=== PATIENT | female | born 1995 | race Caucasian/White ===

== ENCOUNTER 2025-04-18 16:15 | Day surgery (SDC) | payer SELFPAY ==
[2025-04-18] MEDS ORDERED: hydrALAZINE 20 MG/ML VIAL SLOW IVP PRN (16:39)
[2025-04-18 16:44] VITALS: BMI 30.7
== END 2025-04-18 17:50 | disposition home or self-care (01) ==
LOC: CSHLD/OP 16:15
PROVIDERS: ATTEND Obstetrics & Gynecology
DX: O36.8330 Maternal care for abnormalities of the fetal heart rate or rhythm, third trimester, not applicable or unspecified (principal); Z3A.35 35 weeks gestation of pregnancy; Z88.2 Allergy status to sulfonamides
CPT/HCPCS: 76819; 99282